=== PATIENT | female | born 1950 | race Caucasian/White ===

== ENCOUNTER 2019-04-05 08:19 | Inpatient (IN) ==
[2019-04-05] MEDS ORDERED: ASPIRIN PO ONE ×2 (08:33→08:50)
--- NOTE | 2019-04-05 08:39 | EKG Report ---
Test Performed on : 04/05/2019 08:25:29 AM Test Reason : CP Blood Pressure : / mmHG Vent. Rate : 082 BPM Atrial Rate : 082 BPM P-R Int : 158 ms QRS Dur : 076 ms QT Int : 402 ms P-R-T Axes : 028 -09 032 degrees QTc Int : 469 ms Normal sinus rhythm. Inferior infarct (cited on or before 25-AUG-2016) Abnormal ECG When compared with ECG of 01-AUG-2017 02:13, premature ventricular complexes. are no longer present Vent. rate has decreased BY 91 BPM Nonspecific T wave abnormality, improved in Anterolateral leads Unconfirmed Result
[2019-04-05] MEDS ORDERED: NITROGLYCERIN SL ONE (08:50)
--- NOTE | 2019-04-05 08:56 | PROVIDER DOCUMENTATION ---
HPI-Chest Pain - General Chief Complaint: Chest Pain Stated Complaint: CP Time Seen by Provider: 04/05/19 08:44 Allergies/Adverse Reactions: Patient Allergies Allergy/AdvReac Type Severity Reaction Status Date / Time adhesive tape Allergy Unknown Verified 04/05/19 11:56 Home Medications: Home Medication List Medication Instructions Recorded Confirmed Last Taken Type Fluoxetine HCl [Prozac] 40 mg PO BID 08/25/16 04/05/19 04/04/19 09:00 History Glipizide 5 mg PO BID 08/25/16 04/05/19 04/04/19 21:00 History Metformin [Glucophage] 1,000 mg PO BID CC 08/25/16 04/05/19 04/04/19 19:00 History Ubidecarenone [Co Q-10] 100 mg PO DAILY 08/25/16 04/05/19 04/04/19 09:00 History Levothyroxine [Synthroid] 100 microgm PO DAILY #100 tablet 09/01/16 04/05/19 04/04/19 06:00 Rx Aspirin 81 mg PO DAILY 07/26/17 04/05/19 04/04/19 09:00 History Cholecalciferol (Vitamin D3) 2,000 unit PO HS 07/31/17 04/05/19 04/04/19 21:00 History [Vitamin D3] Clonazepam 0.5 mg PO HS 04/05/19 04/05/19 04/04/19 21:00 History Pioglitazone HCl 15 mg PO DAILY 04/05/19 04/05/19 04/04/19 09:00 History - History of Present Illness-CP Nature of Presenting Problem: 68 y/o history of DM presented with indigestion chest tightness, shortness of breath, pain radiating to both shouder and neck, patient was anxious Location: reports: central Chest Pain Radiation: reports: neck, shoulders Quality of Pain: reports: fullness, indigestion, tightness Onset/Duration: gradual, this morning Timing: still present Context/Activities at Onset: reports: none Modifying Factors: improves with: nothing Associated Symptoms: reports: fatigue, shortness of breath, weakness. denies: abdominal pain Prior Chest Pain/Cardiac Workup: reports: no prior chest pain, no prior cardiac workup, non-cardiac Similar Symptoms Previously?: No Recently Seen Here or By Another Healthcare Provider: No Review of Systems - Adult - REVIEW OF SYSTEMS - ADULT Constitutional: reports: shannan. denies: fever Eyes: reports: no symptoms reported Ears, Nose, Mouth & Throat: reports: no symptoms reported Cardiovascular: reports: see HPI, chest pain Respiratory: reports: see HPI, shortness of breath Genitourinary: reports: no symptoms reported Musculoskeletal: reports: no symptoms reported Integumentary: reports: no symptoms reported Neurological: reports: no symptoms reported Psychiatric: reports: no symptoms reported Endocrine: reports: no symptoms reported Hematologic/Lymphatic: reports: no symptoms reported Allergic/Immunologic: reports: no symptoms reported Past History - Adult - PAST MEDICAL HISTORY-ADULT Review of Records: reports: Nursing Assessment Review Physical Exam-General - PHYSICAL EXAM-ADULT Initial Vital Signs Reviewed: Yes - CONSTITUTIONAL General Appearance: appears well, alert, mild distress - EYES Eyes: PERRL/EOMI - HEAD, EARS, NOSE, MOUTH & THROAT HENMT: normocephalic/atraumatic - NECK Neck: non-tender, supple - RESPIRATORY Respiratory: chest non-tender, lungs clear - CARDIOVASCULAR Cardiovascular: normal peripheral pulses, regular rate, rhythm, no edema, no gallop, no JVD - GASTROINTESTINAL (ABDOMEN) Abdominal Exam: normal bowel sounds, non tender, soft - LYMPHATIC Lymphatic: no adenopathy - MUSCULOSKELETAL Back Exam: normal inspection, no CVA tenderness, no vertebral tenderness Extremity: normal range of motion, non-tender, normal gait, normal inspection, no pedal edema, no calf tenderness - SKIN Integumentary: normal color, warm/dry - NEUROLOGIC 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, grossly normal, no motor/sensory deficits - PSYCHIATRIC Psych/Mental Status: normal mood/affect - HEART Score HEART Score: History: Highly Suspicious HEART Score: ECG: Non-Specific Repolarization Disturbance/LBBB/PM HEART Score: Age: > or = 65 Years HEART Score: Risk Factors for Atherosclerotic Disease: 1 or 2 Risk Factors HEART Score: Troponin: < or = Normal Limit Total HEART Score:: 6 Progress - PLAN OF CARE/RESULTS Progress/Plan/Lab Results: Laboratory Results - last 24 hr 04/05/19 04/05/19 04/05/19 08:50 08:55 09:23 WBC 8.55 RBC 4.47 Hgb 13.7 Hct 42.1 MCV 94.2 MCH 30.6 MCHC 32.5 L RDW Std Deviation 12.8 Plt Count 308 MPV 9.9 Neut % (Auto) 68.3 Lymph % (Auto) 20.8 [place] % (Auto) 9.0 Eos % (Auto) 1.5 Baso % (Auto) 0.4 Neut # (Auto) 5.84 Lymph # (Auto) 1.78 [place] # (Auto) 0.77 H Eos # (Auto) 0.13 Baso # (Auto) 0.03 PT INR PTT (Actin FS) Sodium Potassium Chloride Carbon Dioxide Anion Gap BUN Creatinine Estimated GFR/1.73 m2 BUN/Creatinine Ratio Glucose POC Glucose 188 H Estimat Average Glucose Hemoglobin A1c Calculated Osmolality Calcium Total Bilirubin AST ALT Alkaline Phosphatase Creatine Kinase Troponin T Qbh-N-Ucxdrrdkikl Pept 44 Total Protein Albumin Globulin Albumin/Globulin Ratio Amylase Lipase Urine Source Urine Color Urine Turbidity Urine pH Ur Specific [place] Urine Protein Ur Glucose (Stick) Ur Ketones (Stick) Urine Blood Urine Nitrite Urine Bilirubin Urobilinogen Dipstick Urine Leukocytes Urine WBC (Auto) Urine RBC (Auto) U Epithel Cells (Auto) Urine Bacteria (Auto) Urine Crystals Small Round Cells Urine Casts Urine Yeast-like Cells Urine Opiates Screen Ur Oxycodone Screen Ur Methadone, Qual Ur Barbiturates Screen Ur Phencyclidine Scrn Ur Amphetamines Screen U Benzodiazepines Scrn Urine Cocaine Screen U Cannabinoids Screen 04/05/19 04/05/19 04/05/19 09:23 09:23 09:23 WBC RBC Hgb Hct MCV MCH MCHC RDW Std Deviation Plt Count MPV Neut % (Auto) Lymph % (Auto) [place] % (Auto) Eos % (Auto) Baso % (Auto) Neut # (Auto) Lymph # (Auto) [place] # (Auto) Eos # (Auto) Baso # (Auto) PT 12.6 INR 0.94 PTT (Actin FS) 29.7 Sodium 135 L Potassium 3.8 Chloride 97 L Carbon Dioxide 25 Anion Gap 13 BUN 11 Creatinine 0.5 Estimated GFR/1.73 m2 > 60 BUN/Creatinine Ratio 22 Glucose 210 H POC Glucose Estimat Average Glucose Hemoglobin A1c Calculated Osmolality 276 Calcium 8.6 L Total Bilirubin 0.52 AST 98 H ALT 55 H Alkaline Phosphatase 138 H Creatine Kinase 97 Troponin T < 0.010 Esv-C-Tcjdsdwwjbu Pept Total Protein 6.6 Albumin 4.1 Globulin 2.5 Albumin/Globulin Ratio 1.6 Amylase 52 Lipase 25 Urine Source Urine Color Urine Turbidity Urine pH Ur Specific [place] Urine Protein Ur Glucose (Stick) Ur Ketones (Stick) Urine Blood Urine Nitrite Urine Bilirubin Urobilinogen Dipstick Urine Leukocytes Urine WBC (Auto) Urine RBC (Auto) U Epithel Cells (Auto) Urine Bacteria (Auto) Urine Crystals Small Round Cells Urine Casts Urine Yeast-like Cells Urine Opiates Screen Ur Oxycodone Screen Ur Methadone, Qual Ur Barbiturates Screen Ur Phencyclidine Scrn Ur Amphetamines Screen U Benzodiazepines Scrn Urine Cocaine Screen U Cannabinoids Screen 04/05/19 04/05/19 04/05/19 09:30 09:30 11:47 WBC RBC Hgb Hct MCV MCH MCHC RDW Std Deviation Plt Count MPV Neut % (Auto) Lymph % (Auto) [place] % (Auto) Eos % (Auto) Baso % (Auto) Neut # (Auto) Lymph # (Auto) [place] # (Auto) Eos # (Auto) Baso # (Auto) PT INR PTT (Actin FS) Sodium Potassium Chloride Carbon Dioxide Anion Gap BUN Creatinine Estimated GFR/1.73 m2 BUN/Creatinine Ratio Glucose POC Glucose Estimat Average Glucose 143 Hemoglobin A1c 6.6 H Calculated Osmolality Calcium Total Bilirubin AST ALT Alkaline Phosphatase Creatine Kinase Troponin T Agg-X-Unsguqwlpuk Pept Total Protein Albumin Globulin Albumin/Globulin Ratio Amylase Lipase Urine Source CLEAN CATCH Urine Color YELLOW Urine Turbidity CLEAR Urine pH 8.0 Ur Specific [place] 1.010 Urine Protein NEGATIVE Ur Glucose (Stick) NEGATIVE Ur Ketones (Stick) TRACE A Urine Blood NEGATIVE Urine Nitrite NEGATIVE Urine Bilirubin NEGATIVE Urobilinogen Dipstick NORMAL Urine Leukocytes MODERATE A Urine WBC (Auto) <10 Urine RBC (Auto) <10 U Epithel Cells (Auto) <10 Urine Bacteria (Auto) 1+ Urine Crystals NONE SEEN Small Round Cells NONE SEEN Urine Casts NONE SEEN Urine Yeast-like Cells NONE SEEN Urine Opiates Screen NONE DETECTED Ur Oxycodone Screen NONE DETECTED Ur Methadone, Qual NONE DETECTED Ur Barbiturates Screen NONE DETECTED Ur Phencyclidine Scrn NONE DETECTED Ur Amphetamines Screen NONE DETECTED U Benzodiazepines Scrn NONE DETECTED Urine Cocaine Screen NONE DETECTED U Cannabinoids Screen NONE DETECTED Orders Category Date Time Status [facility] Routine AdmDCTranf 04/05/19 11:47 Active Activity - Up with Assistance ORDERED Care 04/05/19 11:47 Active Cardiac Monitoring DIRECTED Care 04/05/19 08:34 Active FSBS/Accucheck Result AC + HS Care 04/05/19 11:47 Active Intake and Output-Strict ORDERED Care 04/05/19 14:56 Active Nursing- Assist w/ IS as order ORDERED Care 04/05/19 14:56 Active Oxygen Therapy- ED Nursing DIRECTED Care 04/05/19 08:34 Active Saline Loc DIRECTED Care 04/05/19 08:49 Active Saline Loc NOW Care 04/05/19 08:34 Active Update & Confirm Home Medicati ROUTINE Care 04/05/19 11:39 Active Use Oxygen.Protocol ORDERED Care 04/05/19 08:51 Active Vital Signs Order Q 4-HR ASSESS Care 04/05/19 14:56 Active Z-Document. for Tele Applied ORDERED Care 04/05/19 14:56 Completed Social Service Consult Routine Cons 04/05/19 14:56 Active Diabetic Diet Diet 04/05/19 11:47 Completed NPO Diet 04/05/19 08:49 Completed CHEST-2 VIEWS [RAD] Routine Exams 04/06/19 06:00 Ordered CHEST-PORTABLE [RAD] Stat Exams 04/05/19 08:50 Completed A1C HGB W EST AVG GLUCOSE [CHEM] Stat Lab 04/05/19 11:47 Completed AMYLASE [CHEM] Stat Lab 04/05/19 09:23 Completed CBC WITH DIFF [HEME] Routine Lab 04/06/19 06:00 Ordered CBC WITH ELECTRONIC DIFF [HEME] Stat Lab 04/05/19 08:55 Completed CK PROFILE [SP CHEM] Stat Lab 04/05/19 09:23 Completed CK TOTAL [CHEM] Q8H Lab 04/05/19 13:08 Completed CK TOTAL [CHEM] Q8H Lab 04/05/19 20:00 Ordered CK TOTAL [CHEM] Q8H Lab 04/06/19 04:00 Ordered COMPREHENSIVE METABOLIC PANEL [CHEM] Routine Lab 04/06/19 06:00 Ordered COMPREHENSIVE METABOLIC PANEL [CHEM] Stat Lab 04/05/19 09:23 Completed CRP [C REACTIVE PROT QUANT] [CHEM] Stat Lab 04/05/19 13:08 Completed FREE T4 Routine Lab 04/06/19 06:00 Ordered LIPASE [CHEM] Stat Lab 04/05/19 09:23 Completed LIPID PROFILE W/DIR LDL [LIPIDS] Stat Lab 04/05/19 13:08 Completed MAGNESIUM [CHEM] Routine Lab 04/06/19 06:00 Ordered PRO B-NATRIURETIC PEPTIDE Stat Lab 04/05/19 09:23 Completed PROTIME WITH INR [COAG] Routine Lab 04/06/19 06:00 Ordered PROTIME WITH INR [COAG] Stat Lab 04/05/19 09:23 Completed PTT [COAG] Routine Lab 04/06/19 06:00 Ordered PTT [COAG] Stat Lab 04/05/19 09:23 Completed TROPONIN T Q8H Lab 04/05/19 13:08 Completed TROPONIN T Q8H Lab 04/05/19 20:00 Ordered TROPONIN T Q8H Lab 04/06/19 04:00 Ordered TROPONIN T Stat Lab 04/05/19 09:23 Completed TSH Routine Lab 04/06/19 06:00 Ordered URINALYSIS W/POSS RFLX CULT [URINALYSIS] Stat Lab 04/05/19 09:30 Completed URINE CULTURE [RM] Routine Lab 04/05/19 10:25 Received URINE DRUG SCREEN Stat Lab 04/05/19 09:30 Completed URINE MANUAL MICROSCOPIC [URINALYSIS] Stat Lab 04/05/19 09:30 Completed 0.9% Sodium Chloride Inj [Ns] 1,000 ml Med 04/05/19 11:47 Active IV 75 mls/hr Acetaminophen [Tylenol] Med 04/05/19 11:47 Active 650 mg PO Q6H PRN PRN Aspirin Med 04/05/19 08:33 Discontinued 325 mg PO NOW ONE Aspirin Med 04/05/19 08:50 Discontinued 325 mg PO NOW ONE Enoxaparin [Lovenox] Med 04/05/19 10:30 Discontinued 100 mg SUBQ BID Insulin Human Regular [Humulin R] Med 04/05/19 16:00 Active See Protocol SUBQ 0700,1100,1600,2100 Lido/Bray Alk/Al&mg Hydrox [G.i. Cocktail] Med 04/05/19 11:40 Discontinued 30 ml PO NOW ONE Nitroglycerin Sl [Nitroglycerin] Med 04/05/19 08:50 Discontinued 0.4 mg SL NOW ONE Omeprazole [Prilosec] Med 04/05/19 21:00 Active 40 mg PO BID Ondansetron [Zofran] Med 04/05/19 11:47 Active 4 mg IV Q4H PRN PRN Incentive Spirometer Routine Oth 04/05/19 14:56 Completed Oxygen Device Routine Oth 04/05/19 14:56 Completed Pulse Oximetry Routine Oth 04/05/19 14:56 Completed Telemetry [OM.EQ] Routine Oth 04/05/19 14:56 Active EKG [EKG] Routine Ther 04/06/19 08:00 Ordered EKG [EKG] Stat Ther 04/05/19 08:29 Draft Transfer/Admit Order [TRANSFER] Routine Transfer 04/05/19 11:40 Completed Result Diagrams: 04/05/19 08:55 04/05/19 09:23 - EKG 1 Time of EKG reading by physician:: 08:25 EKG Interpretation (*Must complete 3 of following elements*): Normal Rate: 82 Rhythm: msr [place]: normal QRS: normal CO Interval: normal ST Wave: normal - CONSULTS/PCP/HOSPITALIST Notification #1 *Consult/PCP/Hospitalist*: Gabby Time Discussed: 10:42 Consult Disposition: Admit Departure - Departure Date of Disposition Decision: 04/05/19 Time of Disposition Decision: 10:41 DIAGNOSIS: Chest pain Disposition: ADMITTED INPATIENT 09 Certified Medical Emergency: Emergent Condition: Good - Critical Care Note This patient required my direct & personal management of CC.: No Attestation - Physician/ YVONNE Attestation Patient care was provided by Advanced Practice Provider:: No The physician spent face to face time with patient:: Yes Advanced Practice Provider documentation review:: Supervising physician onsite and consulted in the evaluation and care of this patient. The physician did have a face to face encounter with the patient.
--- NOTE | 2019-04-05 09:06 | Diag Imaging Result Doc PS360 ---
EXAM: CHEST-PORTABLE 04/05/2019 HISTORY: chest pain TECHNIQUE: AP portable at 0858 COMMENT: There are granulomata present in both upper lobes. The heart size and primary vascularity are within normal limits. There are multiple surgical clips in the right axilla. No previous studies are available for comparison. IMPRESSION: No evidence of acute disease. Electronically signed by Clement Viveros 04/05/2019 9:04 AM
[2019-04-05 09:10] LABS: BASO# 0.03 X1000 (0.0-0.2); BASO% 0.4 % (0.0-0.8); EOS# 0.13 X1000 (0.0-0.7); EOS% 1.5 % (0.0-10.0); HEMATOCRIT 42.1 % (37.0-47.0); HEMOGLOBIN 13.7 g/dL (12.0-16.0); LYMPH# 1.78 X1000 (1.2-3.4); LYMPH% 20.8 % (20.5-51.1); MCH 30.6 PG (27-31); MCHC 32.5 g/dL (33-37); MCV 94.2 FL (81-99); MONO# 0.77 X1000 (0.11-0.59); MPV 9.9 FL (7.4-10.4); NEUT# 5.84 X1000 (1.4-6.5); NEUT% 68.3 % (42.2-75.2); PLT 308 X1000 (130-400); RBC 4.47 XMIL (4.2-5.4); RDW 12.8 % (11.5-14.5); WBC 8.55 X1000 (4.8-10.8)
[2019-04-05 09:42] LABS: URINE SOURCE CLEAN CATCH
[2019-04-05 09:51] LABS: BILIRUBIN URINE NEGATIVE (NEGATIVE); BLOOD URINE NEGATIVE (NEGATIVE); COLOR YELLOW; GLUCOSE URINE NEGATIVE (NEGATIVE); KETONE URINE TRACE mg/dL (NEGATIVE); LEUKOCYTES URINE MODERATE (NEGATIVE); NITRITE URINE NEGATIVE (NEGATIVE); PROTEIN URINE NEGATIVE (NEGATIVE); TURBIDITY URINE CLEAR (CLEAR); UROBILINOGEN URINE NORMAL (NORMAL)
[2019-04-05 09:52] LABS: UR EPITHELIAL CELLS <10 /HPF (<10); URINE BACTERIA 1+ /HPF; URINE RBC <10 /HPF (<10); URINE WBC <10 /HPF (<10)
[2019-04-05 09:56] LABS: INR 0.94; PROTIME 12.6 Seconds (11.0-16.0); PTT 29.7 Seconds (22.3-41.8)
[2019-04-05 10:04] LABS: AGAP 13; CHLORIDE 97 mmol/L (98-107); GLUCOSE 210 mg/dL (70-104); POTASSIUM 3.8 mmol/L (3.5-5.1); SODIUM 135 mmol/L (136-145); TCO2 25 mmol/L (25-35)
[2019-04-05 10:05] LABS: ALB/GLOB RATIO 1.6; ALBUMIN 4.1 g/dL (3.5-5.0); ALKALINE PHOSPHATASE 138 U/L (32-104); AMYLASE 52 U/L (20-200); BUN 11 mg/dL (8-22); CALCIUM 8.6 mg/dL (8.8-10.2); CK PROFILE 97 U/L (24-173); COSMO 276; CREATININE 0.5 mg/dL (0.5-0.9); ESTIMATED GFR > 60; GOT 98 U/L (10-30); GPT 55 U/L (10-36); LIPASE 25 U/L (13-60); TOTAL BILIRUBIN 0.52 mg/dL (0.20-1.00); TOTAL PROTEIN 6.6 g/dL (6.3-8.3)
[2019-04-05 10:13] LABS: URINE YEAST NONE SEEN
[2019-04-05 10:14] LABS: URINE CASTS NONE SEEN; URINE CRYSTALS NONE SEEN; URINE SMALL ROUND CELLS NONE SEEN
[2019-04-05] MEDS ORDERED: LOVENOX SUBQ SCH (10:30)
[2019-04-05] MEDS ORDERED: G.I. COCKTAIL PO ONE (11:40)
[2019-04-05] MEDS ORDERED: ZOFRAN IV PRN (11:47)
[2019-04-05] MEDS: NS 1,000 ML IV SCH (13:39)
[2019-04-05 13:50] LABS: HEMOGLOBIN A1C 6.6 % (4.8-6.0)
[2019-04-05 14:04] LABS: UR AMPHETAMINES QUAL NONE DETECTED (NONE DETECT); UR BARBITUATES QUAL NONE DETECTED (NONE DETECT); UR BENZODIAZEPIN QUAL NONE DETECTED (NONE DETECT); UR CANNABINOIDS QUAL NONE DETECTED (NONE DETECT); UR COCAINE QUAL NONE DETECTED (NONE DETECT); UR METHADONE QUAL NONE DETECTED (NONE DETECT); UR OPIATES QUAL NONE DETECTED (NONE DETECT); UR OXYCODONE QUAL NONE DETECTED (NONE DETECT); UR PCP QUAL NONE DETECTED (NONE DETECT)
[2019-04-05] MEDS ORDERED: LEXISCAN ONE (15:31)
--- NOTE | 2019-04-05 16:21 | Diag Imaging Result Doc PS360 ---
EXAM: ABDOMEN FLAT/UPRIGHT INDICATION: epigastric pain TECHNIQUE: 3 views COMPARISON: None. FINDINGS: There are nonspecific bowel gas and stool patterns. There is no obstructive bowel pattern. There is no evidence of large volume free abdominal gas. There is no evidence of organomegaly. IMPRESSION: Nonspecific abdomen. Electronically signed by Jose Perez 04/05/2019 4:18 PM
--- NOTE | 2019-04-05 18:01 | Diag Imaging Result Document ---
PROCEDURE NAME: MYOCARDIAL PERF SCAN, STR/REST - 04/05/2019 INDICATION: Chest pain. PROCEDURES PERFORMED: 1. Lexiscan stress. 2. One-day stress/rest myocardial perfusion imaging. PROCEDURE FINDINGS: LEXISCAN STRESS RESULTS: 1. Baseline EKG shows sinus rhythm. 2. Lexiscan stress does not demonstrate any clear evidence of ischemic-related EKG changes or significant arrhythmias during the course of the study. PERFUSION IMAGING RESULTS: 1. No evidence of abnormal extracardiac uptake. 2. TID ratio 0.94. 3. Perfusion imaging demonstrates what appears to be normal homogeneous uptake of radiotracer throughout the myocardial segments. There is no evidence of stress-related defects. 4. Normal ejection fraction of 88%. The end-diastolic volume is 80, and systolic volume is 10. Normal wall motion is noted. cc: MD Gabby Krishna CRNP
[2019-04-05] MEDS: HUMULIN R SUBQ SCH ×2 (18:50→21:19)
--- NOTE | 2019-04-05 20:05 | HISTORY AND PHYSICAL ---
PRIMARY CARE PROVIDER: Dr. Az Yen. DATA ENTRY ASSOCIATE: Dr. Christina. SURGEON: Otilio. ONCOLOGIST: Jennifer. CHIEF COMPLAINT: Chest pain and epigastric pain. HISTORY OF PRESENT ILLNESS: Ms. Alva Hendricks is a 68-year-old female, with a medical history of diabetes mellitus type 2, hyperlipidemia, GERD with hiatal hernia, irritable bowel syndrome, goiters, right breast cancer in the past, who presents today with complaints of epigastric pain and chest pain. She states that around 4 a.m., she was awoken from sleep with indigestion that radiated up into her chest from her upper abdomen, and then around 4 a.m. the chest pain radiated into the neck, the back, and to between the shoulders. She took 2 GasX which apparently did not relieve her discomfort. Apparently, she was also noted to be clammy by her daughter. At about 7 a.m., she took Cee Lizemores and still did not improve. She felt like it was severe gas pains under her left upper quadrant abdomen. Was brought to the emergency department. [place] weak and short of breath. She felt like the pain was immediately relieved with aspirin and nitroglycerin. She denies any fever, chills, nausea, vomiting, diarrhea. Essentially no other complaints. She states that these symptoms have not happened at any other time. She does claim that she has indigestion symptoms from time to time and has an acid taste with reflux when she has these spells, but she did not have it with this. So, we will admit her to the medical floor. She is essentially chest pain-free, but still feels tenderness in her bilateral upper quadrants, even with palpation. She also took a GI cocktail which did not seem to make any difference in her symptoms for her. PAST MEDICAL HISTORY: 1. Diabetes mellitus type 2. 2. Hyperlipidemia. 3. GERD with hiatal hernia. 4. Irritable bowel syndrome. 5. Thyroid goiters. 6. Right breast cancer with right mastectomy. 7. Obstructive sleep apnea. Wears a CPAP. 8. Osteoarthritis. 9. Rheumatoid arthritis. SURGICAL HISTORY: 1. She has had a right breast biopsy with right breast mastectomy in 2018. 2. Thyroidectomy. 3. Hysterectomy. 4. Bilateral tubal ligation. 5. Appendectomy. 6. Right foot cyst removed. SOCIAL HISTORY: She lives at home alone. She is very independent. Her daughter is a nurse, I believe for [employer]. She she smoked for 10 years, a 2 to 3 pack per day smoker, but stopped smoking around 40 years ago. Denies alcohol or illicit drug use. She has no difficulties with ambulation at home. Uses no assistive devices. FAMILY HISTORY: Mother had gallbladder cancer and diabetes. Father had coronary artery disease with 3 coronary bypass grafts in his 60s. He also had congestive heart failure, and his parents had heart disease. ALLERGIES: Adhesive tape. HOME MEDICATIONS: 1. Aspirin 81 mg p.o. daily. 2. Clonazepam 0.5 mg p.o. nightly. 3. CoQ10 100 mg p.o. daily. 4. Glipizide 5 mg p.o. twice daily. 5. Metformin 1000 mg p.o. twice daily. 6. Glitisone HCl 15 mg p.o. daily. 7. Prozac 40 mg p.o. twice daily. 8. Vitamin D3 2000 units p.o. nightly. 9. Synthroid 100 mcg p.o. daily. REVIEW OF SYSTEMS: A 14 point review of systems is complete and all are negative except for those mentioned above in HPI. PHYSICAL EXAMINATION: VITAL SIGNS: Temperature 97.4 degrees, heart rate 83, respiratory rate 26, blood pressure 128/74, O2 saturation 100% on room air. She is 5 feet 6 inches tall, 215 pounds, with a BMI of 34.7. GENERAL: Ms. Alva Hendricks is a 68-year-old female. She is in no acute distress. She is able to answer questions appropriately. HEENT: Atraumatic, normocephalic. Pupils equal, round, and reactive to light. Extraocular movements intact. Mucous membranes are moist. NECK: Trachea midline. CARDIOVASCULAR: S1, S2. Regular rate and rhythm. No rubs, gallops, murmurs. No lower extremity edema. +2 dorsalis and radial pulses. Negative JVD or carotid bruits. PULMONARY: Clear to auscultate. Bilateral breath sounds. No accessory muscle use or work of breathing noted. GI: Soft. Tender in the bilateral upper quadrants. Positive bowel sounds x4. EXTREMITIES: Moves all extremities equally. Full range of motion. NEUROLOGIC: Alert and oriented x3. Follows commands. Sensory is intact. SKIN: Warm, dry, intact. LABORATORY DATA: White blood cells 8000, hemoglobin 13, hematocrit 42, platelet count 308,000. INR is 0.94, PTT 29.7. Sodium 135, potassium 3.8, BUN 11, creatinine 0.5, glucose 210, hemoglobin A1c is 6.6, calcium 8.6, bilirubin 0.52, AST is 98, ALT 55, CK 97, troponin less than 0.01. CRP 1.91. ProBNP 44. Albumin 4.1, amylase 52, lipase 25. Urinalysis: Trace ketones, moderate leukocytes, 1+ bacteria. IMAGING: EKG: Normal sinus rhythm, rate 82, QTc 469. Chest x-ray: No evidence of acute disease. ASSESSMENT AND PLAN: 1. Atypical chest pain. Could be related to indigestion or gastrointestinal related, but the pain was actually relieved with aspirin and nitroglycerin. She is going to be able to have a stress test performed today. Cardiac enzymes are negative so far. EKG without any ST elevations. Depending on her stress test results, if they are positive, we will need to get Cardiology involved. Otherwise, we can increase her proton pump inhibitor if it is gastrointestinal related. 2. Gastroesophageal reflux disease with hiatal hernia and frequent spells of indigestion. Continue proton pump inhibitor. 3. Hyperlipidemia. Continue statin. 4. Obstructive sleep apnea. Use CPAP. 5. Deep venous thrombosis with Lovenox. Dictated by ALFREDA Coulter for Hitesh Cisneros MD cc: ALFREDA Coulter MD
[2019-04-05] MEDS: PRILOSEC PO SCH (21:21)
[2019-04-05] MEDS: KLONOPIN PO SCH (21:21)
[2019-04-05] MEDS: VITAMIN D PO SCH (21:22)
[2019-04-05] MEDS: PROZAC PO SCH (21:22)
[2019-04-05] MEDS: TYLENOL PO PRN (21:22)
[2019-04-06] MEDS: NS 1,000 ML IV SCH ×2 (03:58→17:14)
[2019-04-06 05:22] LABS: BASO# 0.02 X1000 (0.0-0.2); BASO% 0.2 % (0.0-0.8); EOS# 0.02 X1000 (0.0-0.7); EOS% 0.2 % (0.0-10.0); HEMOGLOBIN 12.4 g/dL (12.0-16.0); LYMPH# 0.88 X1000 (1.2-3.4); LYMPH% 8.8 % (20.5-51.1); MCH 30.6 PG (27-31); MCHC 32.6 g/dL (33-37); MCV 93.8 FL (81-99); MONO# 0.81 X1000 (0.11-0.59); MONO% 8.1 % (1.7-9.3); MPV 10.3 FL (7.4-10.4); NEUT# 8.24 X1000 (1.4-6.5); NEUT% 82.7 % (42.2-75.2); PLT 271 X1000 (130-400); RBC 4.05 XMIL (4.2-5.4); RDW 12.8 % (11.5-14.5); WBC 9.97 X1000 (4.8-10.8)
[2019-04-06 05:37] LABS: INR 1.09; PROTIME 14.3 Seconds (11.0-16.0); PTT 33.1 Seconds (22.3-41.8)
[2019-04-06] MEDS: HUMULIN R SUBQ SCH ×4 (06:01→21:45)
[2019-04-06 07:02] LABS: AGAP 12; ALB/GLOB RATIO 1.2; ALBUMIN 3.7 g/dL (3.5-5.0); ALKALINE PHOSPHATASE 144 U/L (32-104); BUN 9 mg/dL (8-22); CALCIUM 8.4 mg/dL (8.8-10.2); CHLORIDE 101 mmol/L (98-107); COSMO 278; CREATININE 0.5 mg/dL (0.5-0.9); ESTIMATED GFR > 60; GLUCOSE 193 mg/dL (70-104); GOT 140 U/L (10-30); GPT 195 U/L (10-36); MAGNESIUM 1.6 mg/dL (1.5-2.7); POTASSIUM 3.9 mmol/L (3.5-5.1); SODIUM 137 mmol/L (136-145); TCO2 24 mmol/L (25-35); TOTAL BILIRUBIN 0.54 mg/dL (0.20-1.00); TOTAL PROTEIN 6.7 g/dL (6.3-8.3)
[2019-04-06] MEDS: TYLENOL PO PRN (07:29)
--- NOTE | 2019-04-06 08:20 | EKG Report ---
Test Performed on : 04/06/2019 07:05:59 AM Test Reason : chest pain Blood Pressure : / mmHG Vent. Rate : 107 BPM Atrial Rate : 107 BPM P-R Int : 190 ms QRS Dur : 076 ms QT Int : 350 ms P-R-T Axes : 055 014 039 degrees QTc Int : 467 ms Sinus tachycardia. Low voltage QRS Borderline ECG When compared with ECG of 05-APR-2019 08:25, (Unconfirmed) No significant change was found Confirmed by Eva ROSARIO, Chris Smith ([id number]) on 04/06/2019 9:16:29 AM
--- NOTE | 2019-04-06 09:14 | Diag Imaging Result Doc PS360 ---
EXAM: CHEST-2 VIEWS INDICATION: sob TECHNIQUE: 2 views COMPARISON: 04/05/2019 FINDINGS: There is evidence of prior granulomatous disease, stable. The lungs are grossly clear. There is no discrete pleural fluid collection or pneumothorax. The cardiomediastinal silhouette and central vasculature are grossly unremarkable. IMPRESSION: No evidence of acute pathology by plain radiograph. Electronically signed by Jose Perez 04/06/2019 9:11 AM
[2019-04-06] MEDS: ASPIRIN PO SCH (10:52)
[2019-04-06] MEDS: PROZAC PO SCH ×3 (10:53→21:48)
[2019-04-06] MEDS: COENZYME Q10 PO SCH (10:54)
[2019-04-06] MEDS: PRILOSEC PO SCH ×2 (10:54→21:46)
[2019-04-06] MEDS: SYNTHROID PO SCH (10:54)
--- NOTE | 2019-04-06 10:55 | PROGRESS NOTE ---
DATE: 04/06/2019 SUBJECTIVE: This patient feels a bit better, but she is still complaining of some abdominal pain mostly at the level of the epigastric area, also some headache. Her liver enzymes are elevated, a little bit worse compared with yesterday, but I do not have previous records. I will ask for a hepatitis panel, TIARRA, and also a liver ultrasound. Since this patient has a epigastric pain and elevated Liver function tests, I will consult Gastroenterology Department to evaluate this patient. As per the patient also apparently she has some rheumatological problems, probably scleroderma, but I am not quite sure about it. For now also I will hold her diabetes medications because they can cause hepatotoxicity. This has been explained to the patient and she agreed with that. OBJECTIVE: Vital Signs: Temperature 98.4 degrees, pulse right now 99, respiratory rate 18, blood pressure 112/51, oxygen saturation 98 on room air. HEENT: Head normocephalic, no trauma. PERRLA. Neck: Supple. No JVD. No masses. Central trachea. Chest: Clear to auscultation. No wheezing. No rales. Abdomen: Soft. Some tenderness to palpation at the level of the epigastric area. Positive bowel sounds. No signs of peritoneal irritation. Extremities: No edema, no clubbing, no cyanosis. Neurological exam: The patient is alert. She is oriented x3. No focal deficits. LABORATORY: WBC 9.9, hemoglobin 12.4, hematocrit 38, platelets 271. Sodium 137, potassium 3.9, chloride 101, bicarbonate 24. BUN 9, creatinine 0.5, glucose 193, calcium 8.4. AST 140, ALT 195, alkaline phosphatase 144. Troponins negative x4. ASSESSMENT AND PLAN: 1. Atypical chest pain. She had a stress test done yesterday that did not show any evidence of acute coronary syndrome. She does have normal ejection fracture, no abnormal extracardiac uptake. Troponins have been negative x4, and she feels a little bit better. She has been placed on proton pump inhibitors twice a day as well. We will continue with same management. 2. Elevated liver function tests. I am not sure if this patient has been having this kind of problem before. I do not have previous records or results. I have requested a liver ultrasound, also hepatitis panel and TIARRA. As per the patient, she probably has some rheumatological problems like scleroderma, but I am not quite sure about this. 3. Type 2 diabetes. For now, we will continue with pattern blood sugar and sliding scale insulin. I will avoid hepatotoxic medications. 4. Hyperlipidemia. We will monitor for now. I will ask for a new lipid panel. I do not see statins listed on her medications. 5. Obstructive sleep apnea. Continue with the CPAP machine. 6. Deep vein thrombosis prophylaxis. For now, I will use sequential compression devices. She does have elevated liver enzymes. I am not sure if she is coagulopathic. cc: Hitesh Cisneros MD
[2019-04-06] MEDS ORDERED: ULTRAM PO PRN (16:13)
--- NOTE | 2019-04-06 16:19 | Diag Imaging Result Doc PS360 ---
EXAM: US ABDOMEN-COMPLETE INDICATION: Elevated liver enzymes, abdominal pain COMPARISON: None. FINDINGS: The gallbladder appears normal with no stones, wall thickening, or pericholecystic fluid. The common bile duct is normal in diameter. Sonographic Dent's sign was reported to be negative. The liver is grossly unremarkable. No discrete liver mass is identified. Portal venous flow is hepatopetal. The pancreas is obscured. The aorta and IVC are partially obscured. The visualized portions are unremarkable. The spleen is unremarkable. There is a 2.3 cm simple left renal cyst. The kidneys are unremarkable, otherwise. IMPRESSION: Essentially unremarkable abdominal ultrasound. Electronically signed by Jose Perez 04/06/2019 4:17 PM
[2019-04-06 19:01] LABS: IRON SATURATION 7 %; TIBC 279 ug/dL; TOTAL IRON 19 ug/dL (49-151); UNBOUND IRON 260 ug/dL (112-346)
[2019-04-06] MEDS: KLONOPIN PO SCH (21:46)
[2019-04-06] MEDS: VITAMIN D PO SCH (21:46)
--- NOTE | 2019-04-06 21:59 | GASTROENTEROLOGY CONSULTATION ---
DATE: 04/06/2019 PRIMARY CARE PHYSICIAN: Az Yen MD. REASON FOR CONSULTATION: Elevated liver enzymes, abdominal pain. HISTORY OF PRESENT ILLNESS: Ms. Hendricks is a 68-year-old female, who was admitted on 04/05/2019, for chest pain and epigastric pain. During the admission, she was noted to have elevated liver enzymes. Her liver enzymes in the form of AST was 98, ALT 55, alkaline phosphatase 138. Over the last 24 hours, liver enzymes got worse. AST to 140, ALT 195, alkaline phosphatase 144. She denies any history of prior liver disease. She had an ultrasound of the abdomen done today. The results are unremarkable. No evidence any gallbladder problems. Gastroenterology was consulted for further management. PAST MEDICAL HISTORY: Reflux disease, gas pains in the abdomen, type 2 diabetes, hyperlipidemia, hiatal hernia, irritable bowel syndrome, thyroid goiter, right breast cancer with right mastectomy, obstructive sleep apnea, wears CPAP, osteoarthritis, rheumatoid arthritis. PAST SURGICAL HISTORY: Right breast biopsy with right breast mastectomy in 2018, thyroidectomy, hysterectomy, bilateral tubal ligation, appendectomy, right foot cyst removal. SOCIAL HISTORY: She lives at home by herself. She is very independent. Her daughter is a nurse who works for [employer]. She smoked for 10 years, about 2-3 pack per day smoker, but stopped smoking about 40 years ago. She denies alcohol or illicit drug abuse. FAMILY HISTORY: Mother had gallbladder cancer and diabetes. Father had coronary artery disease with 3 coronary artery bypass grafts in his 60s. He also had congestive heart failure. ALLERGIES: Adhesive tape. MEDICATIONS AT HOME: Aspirin, clonazepam, Co Q10, glipizide, metformin, Prozac, vitamin D3, Synthroid, glitazone. REVIEW OF SYSTEMS: The patient complained of acid taste with reflux, indigestion symptoms, and some chest pain. She describes her pain under her left upper abdomen and epigastric region, which appears to her as severe gas pains. She has been taking Cee-[place] and Gas-X with partial relief. She does complain of irregular bowel habits, attributed to irritable bowel syndrome. She denies any vomiting or passing blood in the stools. Otherwise, a 14-point review of systems is negative other than described in the HPI. MEDICATIONS IN THE HOSPITAL: Reviewed in the EMR. PHYSICAL EXAMINATION: Vital signs: Temperature of 99.6 degrees, pulse of 94, respiratory rate 18, blood pressure 131/56, saturating 92% on room air. Body weight of 150 pounds 4.8 ounces. BMI 26.6 kg/m2. General: Moderately built, moderately nourished, lying in bed, in no acute distress. HEENT: No pallor. No icterus. Pupils equal, reactive to light and accommodation. She complains of headache at the moment. Neck: Supple. Abdomen: Protuberant. Discomfort in the epigastric region, periumbilical region, and left upper quadrant. No rebound. No guarding. Extremities: No cyanosis or clubbing. Neurologic: She is alert, awake, oriented x3. LABORATORY AND DIAGNOSTIC DATA: Her hemoglobin and hematocrit is 12.4 and 38, white count of 9.97, platelet count of 271,000. INR of 1.09, PT of 14.3, PTT of 33.1. Sodium of 137 potassium 3.9, chloride 101, bicarbonate of 24, anion gap 12, BUN of 9, creatinine of 0.5, glucose of 193, calcium is 8.44, magnesium 1.6. Total bilirubin is 0.54, AST 140, ALT 195, alkaline phosphatase 144, total protein is 6.7, albumin of 3.7. TSH is 0.27, free T4 is 1.06. Amylase of 52, lipase of 25. Her triglycerides are 60. Urinalysis showed trace ketones and moderate leukocytes. Abdominal ultrasound shows gallbladder appears normal with no stones or wall thickening. CBD is normal in diameter. Dent sign is negative. Liver is grossly unremarkable. Abdominal x-ray done yesterday, showed nonspecific bowel gas and stool pattern. IMPRESSION: 1. Elevated liver enzymes. 2. Abdominal pain in the periumbilical, epigastrium, and left upper quadrant. 3. Reflux disease. 4. Irritable bowel syndrome. 5. History of breast cancer. 6. Hypothyroidism. RECOMMENDATIONS: We will check chronic liver disease workup. We will avoid any hepatotoxic drugs. We will continue to follow her daily liver enzymes. She will continue on GI prophylaxis with Prilosec. She also has active reflux disease, so Prilosec should help. We will put her on MiraLAX for bowel regime. She is on sliding scale insulin for diabetes. We will avoid Zofran as it can be hepatotoxic. We will follow along. The above plan of care was discussed with the patient and all of her questions answered. Please call us with any questions. cc: MD Az Patel MD
[2019-04-07] MEDS: HUMULIN R SUBQ SCH ×3 (07:03→16:08)
[2019-04-07 07:56] LABS: INR 1.09; PROTIME 14.3 Seconds (11.0-16.0)
[2019-04-07 07:57] LABS: PTT 35.3 Seconds (22.3-41.8)
[2019-04-07 08:17] LABS: AGAP 10; ALBUMIN 3.5 g/dL (3.5-5.0); ALKALINE PHOSPHATASE 121 U/L (32-104); BUN 5 mg/dL (8-22); CHLORIDE 99 mmol/L (98-107); COSMO 273; CREATININE 0.5 mg/dL (0.5-0.9); ESTIMATED GFR > 60; GLUCOSE 162 mg/dL (70-104); GOT 46 U/L (10-30); GPT 113 U/L (10-36); POTASSIUM 3.7 mmol/L (3.5-5.1); SODIUM 136 mmol/L (136-145); TCO2 27 mmol/L (25-35); TOTAL BILIRUBIN 0.57 mg/dL (0.20-1.00)
[2019-04-07 08:18] LABS: CHOLESTEROL 126 mg/dL (0-200); HDL 47 mg/dL (45-65); LDL 60 mg/dL; TRIGLYCERIDES 96 mg/dL (35-135); VLDL 19 mg/dL
[2019-04-07] MEDS: COENZYME Q10 PO SCH (09:10)
[2019-04-07] MEDS: PROZAC PO SCH (09:10)
[2019-04-07] MEDS: SYNTHROID PO SCH (09:10)
[2019-04-07] MEDS: PRILOSEC PO SCH (09:11)
[2019-04-07] MEDS: ASPIRIN PO SCH (09:11)
--- NOTE | 2019-04-07 09:30 | PROGRESS NOTE ---
DATE: 04/07/2019 SUBJECTIVE: The patient is feeling better. She is still complaining of some abdominal pain in the epigastric area radiated to the right upper quadrant. I have the report of the abdominal ultrasound that was essentially unremarkable. The LFTs are trending down as well. I have the result of previous lab work from 01/01/2019, and it looks like her LFTs were all normal. Alkaline phosphatase was 65, AST 15, ALT 18. As per the patient's daughter, she started taking a new medication, Mobic, recently. On the other hand we asked for some lab work to rule out any other conditions that can cause also elevated LFTs. I have stopped all the hepatotoxic medications, and I will follow the recommendations of Gastroenterology Department. OBJECTIVE: Vital Signs: Temperature 98.6 degrees, pulse 86, respiratory rate 18, blood pressure 124/57, oxygen saturation 99 on room air. HEENT: Head normocephalic, no trauma, PERRLA. Neck: Supple. No JVD. No masses. Central trachea. Chest: Clear to auscultation. No wheezing. No rales. Abdomen: Soft. Some tenderness to palpation at the level of the epigastric area and right upper quadrant. Positive bowel sounds. No signs of peritoneal irritation. Extremities: No edema, no clubbing, no cyanosis. Neurological: The patient is alert. She is oriented x3. No focal deficits. LABORATORY: Sodium 136, potassium 3.7, chloride 99, bicarbonate 27, BUN 5, creatinine 0.5. Glucose 162, calcium 8. AST 46, ALT 113, alkaline phosphatase 121. ASSESSMENT AND PLAN: 1. Atypical chest pain. A stress test has been done a couple days ago and did not show any evidence of acute coronary syndrome. She does have a normal ejection fraction. Troponins were negative x4. She feels better. No chest pressure. 2. Elevated liver function tests. Compared with yesterday, the liver function tests are better. We requested some lab work to rule out a lot of conditions. Liver ultrasound did not show any abnormality based on the report. Gastroenterology department following this patient closely. I will wait for their recommendations. She is still having some epigastric pain and right upper quadrant discomfort. 3. Type 2 diabetes. For now, we will continue to pattern her blood sugar and sliding scale insulin. I will avoid hepatotoxic medications. 4. Hyperlipidemia. We will monitor. Apparently, she has been taking statins at home which have been stopped already. 5. Obstructive sleep apnea. Continue with CPAP machine. 6. Deep vein thrombosis prophylaxis. For now, we will use SCDs. She does have elevated liver enzymes, but the PT, PTT, INR seem to be stable. 7. This patient feels a bit better compared with admission. LFTs are trending down, but we are not quite sure about the cause of these, probably related to medications, especially she has been recently started on Mobic for her joint pain. She is still complaining of pain. I will wait for the final recommendations by Gastroenterology Department. Like I mentioned before, she had some lab work done on 01/01/2019 that showed normal LFTs, alkaline phosphatase 65, AST 15, ALT 18. cc: Hitesh Cisneros MD
[2019-04-07] MEDS: NS 1,000 ML IV SCH (11:40)
[2019-04-07 15:39] VITALS: BP 138/72
[2019-04-07] MEDS ORDERED: MIRALAX PO ONE (16:06)
--- NOTE | 2019-04-07 19:07 | GASTROENTEROLOGY PROGRESS NOTE ---
DATE: 04/07/2019 SUBJECTIVE: Patient resting in bed, she is feeling better. Abdominal pain is improving. She complains of constipation. Her liver enzymes trending down. Chronic liver disease workup is currently pending. Her iron studies were ordered and a percent saturation of iron is 7% and iron level of 19 which is low and ferritin is 107 in the normal range. Her AST is 46, ALT 113, alkaline phosphatase 121 today which is trending down. Vitals: Temperature 99.1 degrees, pulse of 85, respiratory 20, blood pressure 130/72 saturating 98% room air, body weight of 150 pounds 4.8 ounces, BMI 26.6 kg per meter. Patient is moderate built, moderate nourished lying in bed in no acute distress. HEENT: No pallor, no icterus. Pupils equal, reactive to light. Neck: Supple. Abdomen: Is protuberant, tympanic on percussion, no rebound or guarding. Extremities: No cyanosis, clubbing. Neuro: Is alert, awake, oriented x3. LABS: Her sodium 132, potassium 3.7, chloride 99, bicarb 27, anion gap 10, BUN of 5, creatinine 0.5, glucose of 162, calcium is 8.0, total bilirubin is 0.57, AST 46, ALT 113, alkaline phosphatase 121, total protein 7, albumin 3.5, amylase 52, lipase of 25, triglycerides 96, HDL is 47. Urine culture no growth. Ultrasound the abdomen yesterday a 2.3 cm simple left renal cyst. Liver is grossly unremarkable. CBD is normal in diameter. Gallbladder appears normal with no stones, wall thickening or pericholecystic fluid. IMPRESSION AND PLAN: 1. Elevated liver enzymes. They are trending down. We are checking chronic liver disease workup. So far the ultrasound is negative for any kind of gallbladder disease. Her iron studies show mild iron deficiency, rest of the chronic liver disease workup is currently pending. We have stopped her Zofran it could be hepatotoxic, she will continue avoid any hepatotoxic drugs, avoid any NSAIDs and she will follow up in the clinic in 3 weeks of discharge. At that time will discuss the chronic liver disease workup. 2. Abdominal discomfort and history of chronic constipation. Her last colonoscopy was many years ago. They do not recall exactly when the colonoscopy was done. Will start on MiraLAX once daily. She will eat high-fiber diet. We may pursue outpatient colonoscopy if continues to be symptomatic. 3. Mild iron deficiency. Continue to watch for now. 4. Type 2 diabetes being monitored primary team. 5. Atypical chest pain. She will continue follow gastroesophageal reflux life changes and continue PPIs for now, as an outpatient we may do an EGD at the same time at the time of doing colonoscopy. 6. Obstructive sleep apnea. Continue CPAP machine. 7. Deep vein thrombosis prophylaxis with sequential compression devices. 8. We can advance her diet as tolerated. The patient can be discharged from our standpoint and can follow up with us in clinic in 3 weeks of discharge. The above plan with patient and the nurse and all questions answered. Please call us with any further questions. cc: Az Yen MD MTDD
--- NOTE | 2019-04-07 19:55 | DISCHARGE SUMMARY ---
ADMISSION DATE: 04/05/2019 DISCHARGE DATE: DISCHARGE DIAGNOSES: 1. Atypical chest pain. 2. Elevated liver function tests, improving. 3. Type 2 diabetes. 4. Hyperlipidemia. 5. Obstructive sleep apnea. 6. Obesity with a body mass index of 26.6. PROCEDURES PERFORMED: Chest x-ray dated 04/05/2019 impression, no evidence of acute disease. Nuclear medicine stress test dated 04/05/2019 impression, no evidence of abnormal extracardiac uptake, perfusion imaging demonstrates what appears to be a normal homogeneous uptake of radiotracer throughout the myocardial segments, there is no evidence of stress related defect, normal ejection fraction of 88%, the end-diastolic volume is 80, systolic volume is 10. Normal wall motion is noted. Abdomen x-ray dated 04/05/2019 impression, nonspecific abdomen, no obstructive bowel pattern. Chest x-ray dated 04/06/2019 impression, no evidence of acute pathology by plain radiograph. Abdomen ultrasound dated 04/06/2019 impression, essentially unremarkable abdominal ultrasound. HOSPITAL COURSE: A 68-year-old female with a past medical history of diabetes, hyperlipidemia, GERD, hiatal hernia, IBS, goiters, right breast cancer in the past, was admitted on 04/05/2019 complaining of epigastric and chest pain. Apparently around 4 a.m. she was awoken from sleep with indigestion that radiated up to her chest and her upper abdomen and the chest pain radiated to the neck and back and between the shoulders. She took 2 Gas-X which apparently did not help. She was also noted to be clammy by her daughter. About 7 a.m. she took an Cee-[place] and still did not improve. She felt like it was a severe gas pains under the left upper quadrant abdomen. She was brought to emergency department. She felt weak and short of breath. She felt like the pain was immediately relieved with aspirin and nitroglycerin. She denies any fever, chills, nausea, vomiting, diarrhea, essentially no other complaints, Just states that those symptoms have not happened at any other time. She did claim that she had indigestion symptom from time to time and has an acid taste with reflux when she has those spells but she did not feel that with this one. She was admitted to the medical floor. We did a stress test that basically was negative, we also asked for a abdominal ultrasound that was negative for any problem with the liver but her liver enzymes were elevated so we consulted Gastroenterology Department to evaluate this patient and basically what we did was stop all the hepatotoxic medications, as per the daughter she started taking a lot of Tylenol Arthritis and also Mobic for her arthritis as well and these medications basically have been the only medications that she is taking recently, of course she has been taking other medications before at home including medication for her diabetes, pain, multivitamins, thyroid, anxiety etc., her liver enzymes are getting better, AST, ALT, and alkaline phosphatase. Gastroenterology Department evaluated this patient today and they have decided to follow up this patient as an outpatient. She is tolerating p.o., she is ambulating, she is not confused, her daughter which is at the bedside is a nurse and she agreed with the treatment and plan, patient will be discharged today. Follow up with her primary care doctor in 1 week and follow up with Dr. Tripathi from Gastroenterology Department in 2 weeks. Vital signs: Temperature 99.1 degrees, pulse 85, respiratory rate 20, blood pressure 138/72, oxygen saturation 98 on room air. HEENT: Head normocephalic, no trauma, PERRLA. Neck: Supple. No JVD. No masses. Central trachea. Chest: Clear to auscultation. No wheezing. No rales. Abdomen: Soft, a little bit bloated. Some tenderness to palpation at the level of the epigastric area. Positive bowel sounds. No signs of peritoneal irritation. Extremities: No edema, no clubbing, no cyanosis. Neurological: The patient is alert and oriented x3. No focal deficits. LABORATORY: Sodium 136, potassium 3.7, chloride 99, bicarbonate 27, BUN 5, creatinine 0.5, glucose 162, calcium 8, AST 46, ALT 113, alkaline phosphatase 121. DISCHARGE MEDICATIONS: Aspirin 81 mg p.o. daily, vitamin D3 2000 units p.o. at bedtime, clonazepam 0.5 mg p.o. at bedtime, Prozac 40 mg p.o. daily, Synthroid 100 mcg p.o. daily, omeprazole 40 mg p.o. b.i.d., MiraLAX 17 g p.o. daily, tramadol 50 mg p.o. q.6 hours as needed and ubidecarenone 100 mg p.o. daily. TIME SPENT: 25 minutes. cc: Hitesh Cisneros MD
[2019-04-08 08:56] LABS: HEPATITIS PROFILE ACUTE SEE COMMENTS
[2019-04-08] MEDS ORDERED: MIRALAX PO SCH (09:00)
== END 2019-04-07 19:00 | disposition home or self-care (01) | DRG 313 ==
LOC: ED 08:19 → EDIPHOLD 12:10 → 3N 14:28
PROVIDERS: ATTEND Internal Medicine